=== PATIENT | female | born 1985 | race African-American/Black ===

== ENCOUNTER 2016-05-22 01:17 | Emergency (ER) | payer MEDICAID | END 2016-05-22 03:25 | disposition left against medical advice (07) | LOC: D.ER 01:17 | DX: R35.0 Frequency of micturition (principal) ==

== ENCOUNTER 2017-02-12 19:29 | Emergency (ER) | payer MEDICAID ==
[2017-02-12 20:12] LABS: APPEARANCE TURBID (CLEAR); BILIRUBIN NEGATIVE (NEGATIVE); COLOR YELLOW (YELLOW); GLUCOSE NEGATIVE (NEGATIVE); KETONE NEGATIVE (NEGATIVE); NITRITE POSITIVE (NEGATIVE); PH 7.5 (5.0-6.0); PROTEIN TRACE mg/dL (NEGATIVE); UROBILINOGEN NORMAL (NORMAL)
[2017-02-12 20:19] LABS: BACTERIA MANY /hpf (NONE SEEN); HYALINE CAST RARE /lpf (NONE SEEN); RED CELLS - URINE 0-5 /hpf (0-5); WHITE CELLS - URINE >50 /hpf (0-5)
== END 2017-02-12 21:58 | disposition home or self-care (01) ==
LOC: D.ER 19:29
PROVIDERS: Emergency Medicine
DX: N39.0 Urinary tract infection, site not specified (principal); R11.0 Nausea